=== PATIENT | female | born 1975 | race Caucasian/White ===

== ENCOUNTER 2021-08-29 17:06 | Observation (INO) ==
[2021-08-29] MEDS ORDERED: HYDROmorphone INJ 1 MG/ML SYRINGE IV STA (17:42)
[2021-08-29] MEDS ORDERED: ONDANSETRON INJ 2 MG/ML 2 ML VIAL IV STA (17:42)
[2021-08-29] MEDS ORDERED: dexAMETHasone**PF** 10 MG/ML VIAL IV ONE (17:42)
--- NOTE | 2021-08-29 17:51 | Emergency Department Note ---
Impression & Plan Protrusion of lumbar intervertebral disc, Acute left lumbar radiculopathy ED Provider Note CHIEF COMPLAINT: Left lower back pain HISTORY OF PRESENT ILLNESS: Diane Solano is a 45 year old female with history of sciatica, asthma, anxiety and insomnia who presents to the Emergency Department for evaluation of pain to her left lower back which has been progressing over the past week and then became significantly worse since yesterday as it is now radiating into her left groin and posterior left thigh, down into her calf. The patient does state that her left leg feels weak and she has not been able to stand up or walk secondary to her pain and weakness. Currently, she describes a severe burning pain and she rates her discomfort as a 10/10 which worsens with any position other than laying flat. She has taken Vicodin without relief of her symptoms. The patient denies having any numb ness/tingling or saddle paresthesias. She does state that she has had increased difficulty moving her bowels but has been urinating normally. She denies radiation of her pain into her right leg, mid-upper back, neck or down her arms. The patient denies sustaining recent falls or injuries prior to the time of onset. She does state that it seemed to come on initially when she got her menstrual cycle, which she has noted in the past as well. She has had sciatica in the past but states that she has never experienced symptoms to this severity before. She otherwise denies fevers/chills, chest pain, respiratory difficulties, abdominal pain, nausea or vomiting. No other acute complaints. REVIEW OF SYSTEMS: 10 systems were reviewed and were negative unless otherwise stated in HPI as above PHYSICAL EXAM: VITALS: Vitals are noted on the nurse's note and reviewed by myself. Vital signs stable. General: Laying flat in bed, tearful, appears uncomfortable HEENT: Normocephalic, atraumatic, PERRL, EOMI, mucous membranes moist, oropharynx clear Neck: No mid-line or paraspinal cervical tenderness, ROM intact without pain Back: Notes pain to the midline lumbar spine and left paraspinal musculature into the buttocks but not reproducible to palpation No obvious step-offs or deformities MSK/neuro: With attention to the LLE, Notes burning pains to the left groin and posterior thigh into the calf but not reproducible to palpation. Strength 5/5 through the hip and knee, 4/5 with plantar/dorsiflexion. Sensation and d/p pulse remains intact. No outward signs of trauma, moving all other extremities without apparent pain or difficulty, sensation intact and strength remains 5/5 throughout these extremities Neuro: Awake, alert and oriented x 3, interacting and answering questions appropriately Differential diagnosis includes musculoskeletal, disc herniation, fracture, cord compression, discitis, sciatica, cauda equina, as well as other pathologies. EMERGENCY DEPARTMENT COURSE: Physical exam and history were performed. Nursing triage notes, EMR, and medication list were personally reviewed. Patient appears to have pain to her left lower back which has been progressing over the past week and then became significantly worse since yesterday as it is now radiating into her left groin and posterior left thigh, down into her calf. The patient does state that her left leg feels weak and she has not been able to stand up or walk secondary to her pain and weakness. She has also noted difficulty having bowel movements, denies loss of continence of her bowels or bladder. Additional history as described above. See physical exam as noted above. The patient was offered pain medication. IV access was established and she was given Dilaudid 1 mg with an additional 0.5 mg x 2, dexamethasone 10 mg and Zofran 4 mg throughout her emergency department course. Given the patient's severe pain and neurological symptoms, MRI of the lumbar spine was obtained and reviewed by radiologist and myself as below. This did show focal disc protrusion in the left neural foramen at L5-S1 with resulting compression of the S1 nerve root, which is consistent with her symptoms. I did discuss results of the above findings with the patient at bedside as well as Dr. Johnson of orthopedic spine. He suggested admitting the patient with medicine for continued management until he is able to evaluate the patient tomorrow. He did suggest NPO at midnight in case of need for possible procedure. [facility] agreed to evaluate the patient as well. The patient verbalized her understanding and agreement with the treatment plan as above. The chart was completed utilizing [employer]. Grammatical errors, random word insertions, pronoun errors, and incomplete sentences are an occasional consequence of this system due to software limitations, ambient noise, and hardware issues. Any formal questions or concerns about the content, text, or information contained within the body of this dictation should be directly addressed to the provider for clarification. Past Med/Surg History Medical History Anxiety Asthma Insomnia Sciatica Surgical History No pertinent past surgical history Social History (Updated 08/29/21 @ 22:18 by Sravani Burns PA-C) Hx Substance Use: No Feels Safe at Home: Yes Results & Data (ED) Vital Signs Vital Signs - 24 hr 08/29/21 17:18 08/29/21 21:08 Temperature 36.7 C Temperature Source Temporal Artery Scan Pulse Rate 99 H Pulse Rate [Left Radial] 78 Pulse Rhythm [Left Radial] Regular Respiratory Rate 18 20 Respiratory Effort / Characteristics Non-Labored Non-Labored Respiratory Depth Normal Normal Blood Pressure 104/72 Blood Pressure [Left Arm] 126/77 Blood Pressure Mean 82 Blood Pressure Mean [Left Arm] 93 Blood Pressure Position Sitting Blood Pressure Position [Left Arm] Lying Pulse Oximetry 96 96 Oxygen Delivery Method Room Air Room Air Sepsis Recent Fever Within 48 Hours No Sepsis New/Unexplained Change in Mental Status No Sepsis Action Taken by Nursing No Action Required Laboratory Data Result diagrams: 08/29/21 21:28 08/29/21 21:28 Lab Results 08/29/21 08/29/21 08/29/21 Range/Units 21:28 21:28 21:28 WBC 9.74 (4.8-10.8) K/ul RBC 4.47 (3.93-5.22) M/uL Hgb 10.7 L (12.0-16.0) g/dl Hct 35.3 (34.1-44.9) % MCV 79.0 L (80.0-100.0) fL MCH 23.9 L (25.0-34.0) pg MCHC 30.3 L (32.0-36.0) g/dL RDW Std Deviation 50.6 H (36.4-46.3) fL RDW Coeff of Coby 17.6 H (11.5-14.5) % Plt Count 307 (130-400) K/uL MPV 10.1 (9.4-12.3) fL Immature Gran % (Auto) 0.4 % Neut % (Auto) 89.2 % Lymph % (Auto) 8.7 % Person % (Auto) 1.1 % Eos % (Auto) 0.4 % Baso % (Auto) 0.2 % Neut # (Auto) 8.68 H (1.4-6.5) K/uL Lymph # (Auto) 0.85 L (1.2-3.4) K/uL Person # (Auto) 0.11 L (0.24-0.82) K/uL Eos # (Auto) 0.04 (0-0.50) K/uL Baso # (Auto) 0.02 (0-0.2) K/uL Immature Gran # (Auto) 0.04 H (0.00-0.02) K/uL Sodium 135 L (136-145) mmol/L Potassium 3.9 (3.5-5.1) mmol/L Chloride 102 (98-107) mmol/L Carbon Dioxide 27 (21-32) mmol/L Anion Gap 6 (3-11) BUN 10 (6-23) mg/dl Creatinine 0.85 (0.6-1.2) mg/dl Est Cr Clr Drug Dosing Not Reportable Est GFR ( Amer) 94.6 ml/min Est GFR (Non-Af Amer) 81.6 ml/min BUN/Creatinine Ratio 11.8 (10-20) Glucose 162 H (70-99(Fasting)) mg/dl Calcium 8.4 L (8.5-10.1) mg/dl Total Bilirubin 0.2 (0.2-1.0) mg/dl AST 14 (13-39) U/L ALT 8 (7-52) U/L Alkaline Phosphatase 71 (34-104) U/L Total Protein 7.2 (6.0-8.3) gm/dl Albumin 4.0 (3.4-5.0) gm/dl Globulin 3.2 (2.5-4.0) gm/dl Albumin/Globulin Ratio 1.3 (0.9-2) SARS-CoV-2, RNA, NAAT NEGATIVE (NEGATIVE) Administered Medications Discontinued Medications Dexamethasone Sodium Phosphate (DexamethasonePf 10 Mg/Ml Vial) 10 mg IV NOW ONE Stop: 08/29/21 17:43 Last Admin: 08/29/21 18:16 Dose: 10 mg Documented By: Hydromorphone HCl (Hydromorphone Inj 1 Mg/Ml Syringe) 1 mg IV NOW STA Stop: 08/29/21 17:43 Last Admin: 08/29/21 18:15 Dose: 1 mg Documented By: Hydromorphone HCl (Hydromorphone Inj 0.5 Mg/0.5 Ml Syr) 0.5 mg IV NOW STA Stop: 08/29/21 19:07 Last Admin: 08/29/21 19:24 Dose: 0.5 mg Documented By: VIRGIL Hydromorphone HCl (Hydromorphone Inj 0.5 Mg/0.5 Ml Syr) 0.5 mg IV NOW STA Stop: 08/29/21 21:37 Last Admin: 08/29/21 21:42 Dose: 0.5 mg Documented By: DIONISIO Ondansetron HCl (Ondansetron Inj 2 Mg/Ml 2 Ml Vial) 4 mg IV NOW STA Stop: 08/29/21 17:43 Last Admin: 08/29/21 18:16 Dose: 4 mg Documented By: Imaging Data Radiologist's Impression: Lumbar Spine MRI 08/29/21 17:42 MR lumbar spine wo con CLINICAL HISTORY: Lumbar pain radiating into posterior LLE/L groin TECHNIQUE: Multiplanar sequences through the lumbar spine were obtained, without intravenous contrast. Comparison: None available at the time of this dictation. FINDINGS: The alignment is anatomical. L1-L2: No significant abnormality. L2-L3: No significant abnormality. L3-L4: No significant abnormality. L4-L5: No significant abnormality. L5-S1: There is a focal disc protrusion in the left neural foramen measuring approximately 5 mm at the base and 2.5 mm in extent, superimposed upon a broad- based disc bulge. There is resulting compression of the left S1 nerve root. The spinal ligaments are intact, without evidence of disruption or abnormal signal intensity. The spinal cord is normal in signal intensity and there is no evidence of cord contusion. There is no evidence of an extradural, intradural, extramedullary or intramedullary lesion. Visualized soft tissues are normal. IMPRESSION: Focal disc protrusion in the left neural foramen at L5-S1 with resulting compression of the S1 nerve root. ACT 112: Negative or not required by law. Electronically signed by: Mohan Sanchez M.D. 08/29/2021 8:04 PM Discharge Plan Visit Data Chief Complaint: Back Injury/Pain Stated Complaint: SEVERE BACK PAIN, GOING DOWN LEG TO CALF ED Provider: Arnold [facility] ED Midlevel Provider: Sravani Burns Discharge Problem: Protrusion of lumbar intervertebral disc, Acute left lumbar radiculopathy Patient Disposition: Admitted As Inpatient Forms Stand Alone Forms: [facility] Referrals Referrals: PCP,NO [Primary Care Provider] -
[2021-08-29] MEDS ORDERED: HYDROmorphone INJ 0.5 MG/0.5 ML SYR IV STA ×2 (19:06→21:36)
--- NOTE | 2021-08-29 20:06 | Magnetic Resonance Report ---
MR lumbar spine wo con CLINICAL HISTORY: Lumbar pain radiating into posterior LLE/L groin TECHNIQUE: Multiplanar sequences through the lumbar spine were obtained, without intravenous contrast . Comparison: None available at the time of this dictation. FINDINGS: The alignment is anatomical. L1-L2: No significant abnormality. L2-L3: No significant abnormality. L3-L4: No significant abnormality. L4-L5: No significant abnormality. L5-S1: There is a focal disc protrusion in the left neural foramen measuring approximately 5 mm at th e base and 2.5 mm in extent, superimposed upon a broad-based disc bulge. There is resulting compressi on of the left S1 nerve root. The spinal ligaments are intact, without evidence of disruption or abnormal signal intensity. The spi nal cord is normal in signal intensity and there is no evidence of cord contusion. There is no eviden ce of an extradural, intradural, extramedullary or intramedullary lesion. Visualized soft tissues are normal. IMPRESSION: Focal disc protrusion in the left neural foramen at L5-S1 with resulting compression of the S1 nerve root. ACT 112: Negative or not required by law. Electronically signed by: Mohan Sanchez M.D. 08/29/2021 8:04 PM
[2021-08-29 21:44] LABS: Basophils # (auto) 0.02 K/uL (0-0.2); Basophils % (auto) 0.2 %; Eosinophils # (auto) 0.04 K/uL (0-0.50); Eosinophils % (auto) 0.4 %; Hematocrit (blood only) 35.3 % (34.1-44.9); Hemoglobin 10.7 g/dl (12.0-16.0); Immature Granulocytes # (auto) 0.04 K/uL (0.00-0.02); Immature Granulocytes % (auto) 0.4 %; Lymphocytes # (auto) 0.85 K/uL (1.2-3.4); Lymphocytes % (auto) 8.7 %; Mean Corpuscular Hemoglobin 23.9 pg (25.0-34.0); Mean Corpuscular Hgb Conc 30.3 g/dL (32.0-36.0); Mean Platelet Volume 10.1 fL (9.4-12.3); Monocytes # (auto) 0.11 K/uL (0.24-0.82); Monocytes % (auto) 1.1 %; Neutrophils # (auto) 8.68 K/uL (1.4-6.5); Neutrophils % (auto) 89.2 %; Platelet Count 307 K/uL (130-400); RDW Coefficient of Variation 17.6 % (11.5-14.5); RDW Standard Deviation 50.6 fL (36.4-46.3); Red Blood Count 4.47 M/uL (3.93-5.22); White Blood Count 9.74 K/ul (4.8-10.8)
[2021-08-29 22:02] LABS: Alanine Aminotransferase 8 U/L (7-52); Albumin Globulin Ratio 1.3 (0.9-2); Alkaline Phosphatase 71 U/L (34-104); Anion Gap 6 (3-11); Aspartate Aminotransferase 14 U/L (13-39); BUN Creatinine Ratio 11.8 (10-20); Bilirubin,Total 0.2 mg/dl (0.2-1.0); Blood Urea Nitrogen 10 mg/dl (6-23); Calcium 8.4 mg/dl (8.5-10.1); Carbon Dioxide 27 mmol/L (21-32); Chloride 102 mmol/L (98-107); Est GFR (African American) 94.6 ml/min; Est GFR (Non-African American) 81.6 ml/min; Globulin 3.2 gm/dl (2.5-4.0); Glucose 162 mg/dl (70-99(Fasting)); Potassium 3.9 mmol/L (3.5-5.1); Sodium 135 mmol/L (136-145); Total Protein 7.2 gm/dl (6.0-8.3)
--- NOTE | 2021-08-29 23:36 | History & Physical Report ---
Date of Service August 29, 2021 Assessment & Plan (1) Acute left lumbar radiculopathy: Plan: Progressive left lower back pain x several months, with acute worsening of pain x1-2 days, as well as weakness, difficulty ambulating, and difficulty passing stools. MRI lumbar spine showing focal disc protrusion in the left neural foramen at L5-S1 with resulting compression of the S1 nerve root - correlates with symptoms. - no saddle paraesthesias or urinary retention, but acute-onset weakness and stooling difficulties is concerning - Orthopedic surgery consulted - appreciate recs - NPO at midnight for possible surgical intervention - received Decadron 10mg IV in ED - s/p Dilaudid total 2mg - will give Toradol 10mg IV x1 now - continue with PRN graduated pain regimen: Tylenol 1g IV Q6H; Dilaudid 0.5mg IV Q3H (2) Hyponatremia: Plan: Na 135, no baseline. Mild, asymptomatic. Suspect hypotonic hypovolemic hyponatremia due to decreased fluid intake. - LR @80cc/hr - trend BMP in AM (3) Anemia: Plan: Hgb 10.7, microcytic/hypochromic. Patient does report heavy menstrual cycles which is likely major contributor to this. MATTHEW may also be playing a role. - iron profile and ferritin ordered in AM - trend CBC in AM (4) Protrusion of lumbar intervertebral disc: Plan: Plan as above (5) Anxiety: Plan: continue home Duloxetine (6) Insomnia: Plan: continue home Trazodone Plan FEN/GI: NPO at midnight for possible surgical intervention; LR @80cc/hr DVT Prophylaxis: SCDs; no chemoppx due to possible surgical intervention Code Status: full code Disposition: med/surg History of Present Illness Chief Complaint: back pain Primary Care Provider: NO PCP Diane Solano is a 45yo female with PMHx significant for anxiety, insomnia and sciatica who presented to [facility] ED on 08/29 for progressive left lower back pain x several months, with interval progression ~1 day ago of severe burning radiating pain through left groin and posterior left thigh into calf, with associated left leg weakness that has made it difficult for her to stand up and walk. Pain is severe in every position besides when she lies completely supine. Took Vicodin at home without relief of pain. Does report that she has had more difficulty moving bowels over the last 1-2 days, but has been urinating normal. Denies numbness/tingling, saddle paresthesias. Denies right-sided symptoms. Denies recent injury/trauma. Patient notes that her chronic left-sided sciatic pain has been progressively worsening over the last 3 months but that it general gets worse before she when starts her menstrual cycle. Denies fever/chills, chest pain, palpitations, SOB, N/V, abdominal pain or rash. In the ED the patient was afebrile and hemodynamically stable on room air. Labs significant for Hgb 10.7 (microcytic/hypochromic). Na 135. Otherwise CBC/CMP unremarkable. COVID-19 negative. Lumbar spine MRI showed focal disc protrusion in the left neural foramen at L5-S1 with resulting compression of the S1 nerve root. Patient was given Decadron 10mg IV x1. Was also given total of Dilaudid 2mg IV and Zofran x1. Currently she reports moderate pain but is significantly improved. The ED provider spoke with Dr. Johnson who recommended admission with hospitalist service for pain control and will be NPO at midnight for evaluation by him tomorrow morning for consideration of surgical management of symptoms. Allergies Allergy/AdvReac Type Severity Reaction Status Date / Time No Known Allergies Allergy Unverified 08/29/21 23:23 Home Medications Medication Instructions Recorded Confirmed Type Musely Vetaran 1 applic topical HS PRN flare ups 08/29/21 08/29/21 History duloxetine 60 mg capsule,delayed 60 mg PO DAILY 08/29/21 08/29/21 History release (Cymbalta) progesterone micronized 100 mg 1 cap PO QPM 08/29/21 08/29/21 History capsule trazodone 150 mg tablet 150 mg PO HS 08/29/21 08/29/21 History Past Med/Surg History Medical History (Updated 08/30/21 @ 01:44 by Joe Oconnor MD) Anxiety Asthma Insomnia Sciatica Surgical History No pertinent past surgical history Social History (Updated 08/29/21 @ 22:18 by Sravani Burns PA-C) Smoking Status: Never smoker Second Hand Exposure: No; Do You Dip or Chew Tobacco: No; Tobacco Cessation Education Requested by Patient: No Hx Alcohol Use: Yes Alcohol type: beer Hx Substance Use: Yes Last Used Substance: Days (ago) Last Used Substance Other:: unsure what day smoked marijuana and took vicodin to help with pain. Preferred Language: Khmer Communication Ability: Effective Community Liaison Required: No Beliefs That Will Affect Care: None Current Living Situation: Significant Other Other Information That Helps Us Care for You: No Feels Safe at Home: Yes Safety Concerns: Feels Safe At This Time Assistive Devices: None Review of Systems Review of Systems: All systems reviewed & are unremarkable except as noted in HPI & below Physical Exam Physical Exam: General: A&Ox3. NAD. Cooperative. HEENT: Atraumatic, normocephalic. Pulm: CTAB A&P. -wheezes, -rales, -rhonchi. Symmetrical chest rise. No increase work of breathing. No respiratory distress. Cardiac: RRR, -mrg. Radial pulses intact and symmetrical. Abdominal: soft, non-tender, non-distended, BS x 4 Back: positive straight leg raise on the left - shooting pain from back down left leg to foot with hip flexion 30 degrees. Left leg: sensation intact, reflexes 2+, hip flexion and leg flexion/extension limited by pain but patient also notices weakness as well. Results & Data Results [facility] Vital Signs (Past 12 Hours) Vital Signs Temp Pulse Pulse Resp BP BP Pulse Ox 08/29/21 22:55 87 19 108/63 99 08/29/21 21:08 78 20 126/77 96 08/29/21 17:18 36.7 C 99 H 18 104/72 96 O2 Del Method 08/29/21 22:55 Room Air 08/29/21 21:08 Room Air 08/29/21 17:18 Room Air Laboratory Results Laboratory Results WBC 9.74 K/ul (4.8-10.8) 08/29/21 21:28 RBC 4.47 M/uL (3.93-5.22) 08/29/21 21:28 Hgb 10.7 g/dl (12.0-16.0) L 08/29/21 21:28 Hct 35.3 % (34.1-44.9) 08/29/21 21:28 MCV 79.0 fL (80.0-100.0) L 08/29/21: MCH 23.9 pg (25.0-34.0) L 08/29/21: MCHC 30.3 g/dL (32.0-36.0) L 08/29/21: RDW Std Deviation 50.6 fL (36.4-46.3) H 08/29/21: RDW Coeff of Coby 17.6 % (11.5-14.5) H 08/29/21: Plt Count 307 K/uL (130-400) 08/29/21: MPV 10.1 fL (9.4-12.3) 08/29/21: Immature Gran % (Auto) 0.4 % 08/29/21: Neut % (Auto) 89.2 % 08/29/21: Lymph % (Auto) 8.7 % 08/29/21: [place] % (Auto) 1.1 % 08/29/21: Eos % (Auto) 0.4 % 08/29/21: Baso % (Auto) 0.2 % 08/29/21: Neut # (Auto) 8.68 K/uL (1.4-6.5) H 08/29/21: Lymph # (Auto) 0.85 K/uL (1.2-3.4) L 08/29/21: [place] # (Auto) 0.11 K/uL (0.24-0.82) L 08/29/21: Eos # (Auto) 0.04 K/uL (0-0.50) 08/29/21: Baso # (Auto) 0.02 K/uL (0-0.2) 08/29/21: Immature Gran # (Auto) 0.04 K/uL (0.00-0.02) H 08/29/21: Sodium 135 mmol/L (136-145) L 08/29/21: Potassium 3.9 mmol/L (3.5-5.1) 08/29/21: Chloride 102 mmol/L (98-107) 08/29/21: Carbon Dioxide 27 mmol/L (21-32) 07/14/22 21:28 Anion Gap 6 (3-11) 08/29/21 21: BUN 10 mg/dl (6-23) 08/29/21 21: Creatinine 0.85 mg/dl (0.6-1.2) 08/29/21 21: Est Cr Clr Drug Dosing Not Reportable 08/29/21 21: Est GFR ( Amer) 94.6 ml/min 08/29/21 21: Est GFR (Non-Af Amer) 81.6 ml/min 08/29/21 21: BUN/Creatinine Ratio 11.8 (10-20) 08/29/21 21: Glucose 162 mg/dl (70-99(Fasting)) H 08/29/21: Calcium 8.4 mg/dl (8.5-10.1) L 08/29/21 21: Total Bilirubin 0.2 mg/dl (0.2-1.0) 08/29/21 21: AST 14 U/L (13-39) 08/29/21 21: ALT 8 U/L (7-52) 08/29/21 21: Alkaline Phosphatase 71 U/L (34-104) 08/29/21 21: Total Protein 7.2 gm/dl (6.0-8.3) 08/29/21 21: Albumin 4.0 gm/dl (3.4-5.0) 08/29/21 21: Globulin 3.2 gm/dl (2.5-4.0) 08/29/21 21: Albumin/Globulin Ratio 1.3 (0.9-2) 08/29/21 21:28 Urine Test Negative (Negative) 08/30/21 02:57 SARS-CoV-2, RNA, NAAT NEGATIVE (NEGATIVE) 08/29/21 21:28 Impressions Lumbar Spine MRI 08/29/21 17:42 MR lumbar spine wo con CLINICAL HISTORY: Lumbar pain radiating into posterior LLE/L groin TECHNIQUE: Multiplanar sequences through the lumbar spine were obtained, without intravenous contrast. Comparison: None available at the time of this dictation. FINDINGS: The alignment is anatomical. L1-L2: No significant abnormality. L2-L3: No significant abnormality. L3-L4: No significant abnormality. L4-L5: No significant abnormality. L5-S1: There is a focal disc protrusion in the left neural foramen measuring approximately 5 mm at the base and 2.5 mm in extent, superimposed upon a broad- based disc bulge. There is resulting compression of the left S1 nerve root. The spinal ligaments are intact, without evidence of disruption or abnormal signal intensity. The spinal cord is normal in signal intensity and there is no evidence of cord contusion. There is no evidence of an extradural, intradural, extramedullary or intramedullary lesion. Visualized soft tissues are normal. IMPRESSION: Focal disc protrusion in the left neural foramen at L5-S1 with resulting compression of the S1 nerve root. ACT 112: Negative or not required by law. Electronically signed by: Mohan Sanchez M.D. 08/29/2021 8:04 PM Code Status & VTE Plan VTE Prophylaxis Plan VTE Prophylaxis will be ordered: Yes Supervising Physician Co-Signing Physician Notes Patient seen and examined, chart reviewed, case discussed with Dr. Oconnor I agree with his assessment and plan as documented above. In brief, patient is a 45-year-old female with history of sciatica presenting with progressive left lower back pain with acute worsening over the last day. Patient describes severe burning pain down her left posterior thigh with leg weakness as well as some difficulty having a bowel movement. She denies trauma, falls, fever/chills. On exam patient is afebrile, hemodynamically stable, no acute distress. HEENTnormocephalic/atraumatic, moist mucous membranes, neck supple Heart+ S1, S2, regular, no murmur/rub/gallops Lungs- Clear to auscultation Abdomenpositive bowel sounds, soft, nontender, nondistended Left lower extremity with reflexes and sensation intact, pain limits mobility. Labs and images reviewed significant for focal disc protrusion in the left neuroforamen at L5-S1 with resulting compression of the S1 nerve root Assessment/Plan: 45-year-old female presenting with acute on chronic back pain with left-sided sciatica, weakness, difficulty with bowel movements. Found to have focal disc protrusion in the left neuroforamen at L5-S1 Patient given steroids in the ER We will continue pain control with Tylenol, Dilaudid as needed Orthopedic surgery consult appreciated Remainder as above Resident Activity Tracking Resident Involvement: Resident Care Provided Care Provided: [facility] Medicine
[2021-08-29] MEDS ORDERED: KETOROLAC TROMETHAMINE 15 MG/ML VIAL IV ONE (23:44)
[2021-08-29] MEDS ORDERED: POLYETHYLENE (MIRALAX) 17 GM PACK PO STA (23:44)
[2021-08-30] MEDS: LACTATED RINGER'S 1,000 ML IV SCH ×2 (00:09→12:42)
[2021-08-30] MEDS ORDERED: DULoxetine HCL 60 MG CAP PO STA (00:15)
[2021-08-30] MEDS ORDERED: traZODone HCL 50 MG TAB PO STA (00:15)
[2021-08-30] MEDS ORDERED: ACETAMINOPHEN 1000 MG/100 ML IV IV PRN (01:42)
[2021-08-30] MEDS ORDERED: Patient's HEIGHT &/or WEIGHT Needed SCH (02:00)
[2021-08-30] MEDS: HYDROmorphone INJ 0.5 MG/0.5 ML SYR IV PRN ×4 (02:19→16:53)
[2021-08-30] MEDS ORDERED: ACETAMINOPHEN 1,000 MG/100 ML VIAL IV PRN (03:45)
[2021-08-30 03:53] LABS: Pregnancy Test, Urine Negative (Negative)
--- NOTE | 2021-08-30 03:58 | Billing Data ---
Date of Service August 30, 2021 Coding Level of Care Code INT OBSERVATION CARE 50M LVL 2
[2021-08-30 07:30] LABS: Hematocrit (blood only) 36.5 % (34.1-44.9); Hemoglobin 11.2 g/dl (12.0-16.0); Immature Granulocytes # (auto) 0.06 K/uL (0.00-0.02); Immature Granulocytes % (auto) 0.5 %; Lymphocytes # (auto) 0.99 K/uL (1.2-3.4); Mean Corpuscular Hemoglobin 23.5 pg (25.0-34.0); Mean Corpuscular Hgb Conc 30.7 g/dL (32.0-36.0); Mean Corpuscular Volume 76.5 fL (80.0-100.0); Mean Platelet Volume 10.1 fL (9.4-12.3); Monocytes # (auto) 0.14 K/uL (0.24-0.82); Monocytes % (auto) 1.3 %; Neutrophils # (auto) 9.76 K/uL (1.4-6.5); Neutrophils % (auto) 89.2 %; Platelet Count 318 K/uL (130-400); RDW Coefficient of Variation 17.3 % (11.5-14.5); RDW Standard Deviation 48.2 fL (36.4-46.3); Red Blood Count 4.77 M/uL (3.93-5.22); White Blood Count 10.95 K/ul (4.8-10.8)
[2021-08-30] MEDS ORDERED: Nursing to Pharmacy Communication SCH (07:45)
[2021-08-30 07:58] LABS: BUN Creatinine Ratio 14.9 (10-20); Calcium 8.5 mg/dl (8.5-10.1); Est GFR (African American) 111.8 ml/min; Est GFR (Non-African American) 96.5 ml/min; Magnesium 1.9 mg/dl (1.7-2.4); Potassium 4.6 mmol/L (3.5-5.1)
[2021-08-30] MEDS: ONDANSETRON INJ 2 MG/ML 2 ML VIAL IV PRN ×2 (08:01→16:53)
--- NOTE | 2021-08-30 08:07 | Hospitalist Progress Note ---
Date of Service August 30, 2021 Assessment & Plan (1) Acute left lumbar radiculopathy: (2) Hyponatremia: (3) Anemia: (4) Protrusion of lumbar intervertebral disc: (5) Anxiety: (6) Insomnia: Plan Ms. Solano is a 45 y/o female with a PMHx of insomnia and anxiety here for evaluation of left lower back pain for several months duration that worsened significantly over the last 1-2 days with associated weakness, difficulty ambulating, and difficulty stooling who has now developed difficulty urinating. #Lumbar Radiculopathy The patient has been experiencing progress left lower back pain for several months duration that has acutely worsened over the last 1-2 days. She also repo rts weakness, difficulty ambulating, and difficulty passing stools. MRI lumbar spine showed focal disc protrusion in the left neural foramen at L5-S1 with compression of the S1 nerve root. Patient denies any saddle paraesthesias, bowel or bladder incontinence. Surgery is recommending injections with pain management prior to any surgical intervention. Pain management cannot see the patient until at the very earliest Thursday. The patient and her are from out of town and have flights planned for Thursday. Will have a conversation with them about next steps. [] Added on Percocet 5 mg Q6 with Tylenol 325 mg Q8. PRN Dilaudid 0.5mg IV Q3H #Hyponatremia Na 135 on admission, no baseline. Mild, asymptomatic. Suspect hypotonic hypovolemic hyponatremia due to decreased fluid intake. [] on LR @80cc/hr [] AM BMP #Anemia Hgb 10.7 on admission. 11.2 today, microcytic/hypochromic. Patient does report heavy menstrual cycles which is likely major contributor to this. Iron deficiency anemia may also be playing a role. [] iron profile and ferritin ordered in AM - Iron-38, TIBC-373, Unsaturated-335, Tranferrin% sat-10L, Unsaturated Ferritin 4.1L [] AM CBC #Anxiety [] continue home Duloxetine #Insomnia [] continue home Trazodone FEN/GI: NPO at midnight for possible surgical intervention; LR @80cc/hr DVT Prophylaxis: SCDs; no chemoppx due to possible surgical intervention Code Status: full code Disposition: med/surg Admission and Anticipated Discharge Date Admission Date: August 29, 2021 Supervising Physician Co-Signing Physician Notes Attending attestation Pt seen and examined in concert with Dr. Benavidez. In agreement with the documented findings as noted in the resident documentation with any exceptions or additions as noted here. Ongoing lower back pain which is an acute exacerbation of chronic pain which has not been this severe previously. Tends to exacerbate with overuse during menses, both of which have occurred at this time. Radiating pain ongoing as noted, though pain controlled on present regimen. Some acute on chronic constipation, requesting bowel regimen assistance. On examination, S1/S2 nl RRR no MCG. CTAB. Abd NT/ND BS+ve. Reflexes and sensation intact bilateral LE. Acute on chronic lower back pain w/ LLE sciatic pain - ortho spine consult - no acute surgical intervention, rec'd pain mgmt on Thursday. Pain control as noted with adjustment of regimen for preference of PO agent. Constipation, acute on chronic - monitor w/ worsening more concerning to be related to LBP - add miralax, consider escalation based on response Else see resident documentation as noted. Subjective The patient notes continued left sided back pain that radiates down the back of the left leg. She presented with difficulty stooling and has now developed d ifficulty with urination. The patient notes continued weakness. Otherwise she has no complaints. Review of Systems Review of Systems: See Subjective/HPI Physical Exam Physical Exam: General: A&Ox3. NAD. Cooperative. HEENT: Atraumatic, normocephalic. Pulm: CTAB A&P. -wheezes, -rales, -rhonchi. Symmetrical chest rise. No increase work of breathing. No respiratory distress. Cardiac: RRR, -mrg. Radial pulses intact and symmetrical. Abdominal: soft, non-tender, non-distended MSK exam deffered. Results & Data Results & Data ([facility]) Vital Signs (Past 12 Hours) Vital Signs Temp Pulse Pulse Resp BP Pulse Ox O2 Del Method 08/30/21 07:34 36.9 C 66 16 108/71 99 Room Air 08/30/21 01:00 36.9 C 60 16 106/67 99 Room Air 08/29/21 22:55 87 19 108/63 99 Room Air 08/29/21 21:08 78 20 126/77 96 Room Air Laboratory Results 08/30/21 08/30/21 08/30/21 Range/Units 07:10 07:10 02:57 WBC 10.95 H (4.8-10.8) K/ul RBC 4.77 (3.93-5.22) M/uL Hgb 11.2 L (12.0-16.0) g/dl Hct 36.5 (34.1-44.9) % MCV 76.5 L (80.0-100.0) fL MCH 23.5 L (25.0-34.0) pg MCHC 30.7 L (32.0-36.0) g/dL RDW Std Deviation 48.2 H (36.4-46.3) fL RDW Coeff of Coby 17.3 H (11.5-14.5) % Plt Count 318 (130-400) K/uL MPV 10.1 (9.4-12.3) fL Immature Gran % (Auto) 0.5 % Neut % (Auto) 89.2 % Lymph % (Auto) 9.0 % [place] % (Auto) 1.3 % Eos % (Auto) 0.0 % Baso % (Auto) 0.0 % Neut # (Auto) 9.76 H (1.4-6.5) K/uL Lymph # (Auto) 0.99 L (1.2-3.4) K/uL [place] # (Auto) 0.14 L (0.24-0.82) K/uL Eos # (Auto) 0.00 (0-0.50) K/uL Baso # (Auto) 0.00 (0-0.2) K/uL Immature Gran # (Auto) 0.06 H (0.00-0.02) K/uL Sodium 135 L (136-145) mmol/L Potassium 4.6 (3.5-5.1) mmol/L Chloride 103 (98-107) mmol/L Carbon Dioxide 26 (21-32) mmol/L Anion Gap 6 (3-11) BUN 11 (6-23) mg/dl Creatinine 0.74 (0.6-1.2) mg/dl Est Cr Clr Drug Dosing 88.0 Est GFR ( Amer) 111.8 ml/min Est GFR (Non-Af Amer) 96.5 ml/min BUN/Creatinine Ratio 14.9 (10-20) Glucose 137 H (70-99(Fasting)) mg/dl Calcium 8.5 (8.5-10.1) mg/dl Magnesium 1.9 (1.7-2.4) mg/dl Iron 38 (35-150) mcg/dl TIBC 373 (250-450) mcg/dl Unsaturated IBC 335 (155-355) mcg/dl Transferrin % Sat 10 L (15-50) % Ferritin 4.1 L (8-388) ng/ml Total Bilirubin (0.2-1.0) mg/dl AST (13-39) U/L ALT (7-52) U/L Alkaline Phosphatase (34-104) U/L Total Protein (6.0-8.3) gm/dl Albumin (3.4-5.0) gm/dl Globulin (2.5-4.0) gm/dl Albumin/Globulin Ratio (0.9-2) Urine Test Negative (Negative) SARS-CoV-2, RNA, NAAT (NEGATIVE) 08/29/21 08/29/21 08/29/21 Range/Units 21:28 21:28 21:28 WBC 9.74 (4.8-10.8) K/ul RBC 4.47 (3.93-5.22) M/uL Hgb 10.7 L (12.0-16.0) g/dl Hct 35.3 (34.1-44.9) % MCV 79.0 L (80.0-100.0) fL MCH 23.9 L (25.0-34.0) pg MCHC 30.3 L (32.0-36.0) g/dL RDW Std Deviation 50.6 H (36.4-46.3) fL RDW Coeff of Coby 17.6 H (11.5-14.5) % Plt Count 307 (130-400) K/uL MPV 10.1 (9.4-12.3) fL Immature Gran % (Auto) 0.4 % Neut % (Auto) 89.2 % Lymph % (Auto) 8.7 % [place] % (Auto) 1.1 % Eos % (Auto) 0.4 % Baso % (Auto) 0.2 % Neut # (Auto) 8.68 H (1.4-6.5) K/uL Lymph # (Auto) 0.85 L (1.2-3.4) K/uL [place] # (Auto) 0.11 L (0.24-0.82) K/uL Eos # (Auto) 0.04 (0-0.50) K/uL Baso # (Auto) 0.02 (0-0.2) K/uL Immature Gran # (Auto) 0.04 H (0.00-0.02) K/uL Sodium 135 L (136-145) mmol/L Potassium 3.9 (3.5-5.1) mmol/L Chloride 102 (98-107) mmol/L Carbon Dioxide 27 (21-32) mmol/L Anion Gap 6 (3-11) BUN 10 (6-23) mg/dl Creatinine 0.85 (0.6-1.2) mg/dl Est Cr Clr Drug Dosing Not Reportable Est GFR ( Amer) 94.6 ml/min Est GFR (Non-Af Amer) 81.6 ml/min BUN/Creatinine Ratio 11.8 (10-20) Glucose 162 H (70-99(Fasting)) mg/dl Calcium 8.4 L (8.5-10.1) mg/dl Magnesium (1.7-2.4) mg/dl Iron (35-150) mcg/dl TIBC (250-450) mcg/dl Unsaturated IBC (155-355) mcg/dl Transferrin % Sat (15-50) % Ferritin (8-388) ng/ml Total Bilirubin 0.2 (0.2-1.0) mg/dl AST 14 (13-39) U/L ALT 8 (7-52) U/L Alkaline Phosphatase 71 (34-104) U/L Total Protein 7.2 (6.0-8.3) gm/dl Albumin 4.0 (3.4-5.0) gm/dl Globulin 3.2 (2.5-4.0) gm/dl Albumin/Globulin Ratio 1.3 (0.9-2) Urine Test (Negative) SARS-CoV-2, RNA, NAAT NEGATIVE (NEGATIVE) Diagnostic Findings MRI Lumbar Spine 08/29: L1-L2: No significant abnormality. L2-L3: No significant abnormality. L3-L4: No significant abnormality. L4-L5: No significant abnormality. L5-S1: There is a focal disc protrusion in the left neural foramen measuring approximately 5 mm at the base and 2.5 mm in extent, superimposed upon a broad- based disc bulge. There is resulting compression of the left S1 nerve root. The spinal ligaments are intact, without evidence of disruption or abnormal signal intensity. The spinal cord is normal in signal intensity and there is no evidence of cord contusion. There is no evidence of an extradural, intradural, extramedullary or intramedullary lesion. Visualized soft tissues are normal. IMPRESSION: Focal disc protrusion in the left neural foramen at L5-S1 with resulting compression of the S1 nerve root. Resident Activity Tracking Resident Involvement: Resident Care Provided Care Provided: [facility]
[2021-08-30 08:11] LABS: Ferritin 4.1 ng/ml (8-388)
[2021-08-30] MEDS ORDERED: DULoxetine HCL 60 MG CAP PO SCH ×2 (09:00→21:00)
--- NOTE | 2021-08-30 14:24 | Orthopedic Consultation ---
Date of Consultation August 30, 2021 Assessment & Plan (1) Acute left lumbar radiculopathy: Assessment herniated was pulposis L5-S1 on the left. Plan at this time explained the patient and her that she has evidence of discrimination that is acute. Its compressing the traversing S1 nerve root on the left and subsequently explains her symptom complex and pattern of pain. We discussed that she is only had the symptoms for about a day and it was worth trying a course of medical management including epidural injections before considering surgical intervention. Patient and her understand agree. We will try for epidural injections if she fails to improve at that point may have to consider surgical invention. History of Present Illness Reason for Consultation: Back and left leg pain Attending Physician: Kris Wells MD History of Present Illness This very pleasant 45-year-old female presents the emergency room yesterday with worsening left leg radiculopathy. She did have a history of significant bouts of back pain for the past several months with an acute onset of left leg pain beginning yesterday. She denies any specific trauma fall or event. Right lower extremity is asymptomatic. She denies any perineal numbness or tingling or any loss of bowel bladder control. Allergies Allergy/AdvReac Type Severity Reaction Status Date / Time No Known Allergies Allergy Unverified 08/29/21 23:23 Home Medications Medication Instructions Recorded Confirmed Type Musely Vetaran 1 applic topical HS PRN flare ups 08/29/21 08/29/21 History duloxetine 60 mg capsule,delayed 60 mg PO DAILY 08/29/21 08/29/21 History release (Cymbalta) progesterone micronized 100 mg 1 cap PO QPM 08/29/21 08/29/21 History capsule trazodone 150 mg tablet 150 mg PO HS 08/29/21 08/29/21 History Patient History Medical History (Updated 08/30/21 @ 01:44 by Joe Oconnor MD) Anxiety Asthma Insomnia Sciatica Surgical History No pertinent past surgical history Social History (Updated 08/29/21 @ 22:18 by Sravani Burns PA-C) Smoking Status: Never smoker Second Hand Exposure: No; Do You Dip or Chew Tobacco: No; Tobacco Cessation Education Requested by Patient: No Hx Alcohol Use: Yes Alcohol type: beer Hx Substance Use: Yes Last Used Substance: Days (ago) Last Used Substance Other:: unsure what day smoked marijuana and took vicodin to help with pain. Preferred Language: Ukrainian Communication Ability: Effective Information Services Consultant Required: No Beliefs That Will Affect Care: None marital status: Life Partner Current Living Situation: Significant Other Other Information That Helps Us Care for You: No Feels Safe at Home: Yes Safety Concerns: Feels Safe At This Time Assistive Devices: None Physical Exam Physical Exam: On exam she is most comfortable supine. She has reasonable plantar flexion dorsiflexion bilaterally. There is tension signs straight leg raising on the left. Sensory appears to be intact. Results & Data ([facility]) Vital Signs (Past 12 Hours) Vital Signs Temp Pulse Resp BP Pulse Ox O2 Del Method 08/30/21 07:34 36.9 C 66 16 108/71 99 Room Air
[2021-08-30] MEDS ORDERED: DOCUSATE SODIUM/SENNA 50/8.6MG TAB PO SCH (17:00)
[2021-08-30] MEDS ORDERED: POLYETHYLENE (MIRALAX) 17 GM PACK PO SCH (17:00)
[2021-08-30] MEDS ORDERED: oxyCODONE/ACETAMINOPHEN 5mg/325mg TAB PO PRN (17:00)
[2021-08-30] MEDS ORDERED: ACETAMINOPHEN 325 MG TAB PO PRN (17:02)
--- NOTE | 2021-08-30 19:42 | Discharge Summary ---
Date of Service August 30, 2021 Admission HPI Per Admitting Provider Diane Solano is a 45yo female with PMHx significant for anxiety, insomnia and sciatica who presented to [facility] ED on 08/29 for progressive left lower back pain x several months, with interval progression ~1 day ago of severe burning radiating pain through left groin and posterior left thigh into calf, with associated left leg weakness that has made it difficult for her to stand up and walk. Pain is severe in every position besides when she lies completely supine. Took Vicodin at home without relief of pain. Does report that she has had more difficulty moving bowels over the last 1-2 days, but has been urinating normal. Denies numbness/tingling, saddle paresthesias. Denies right-sided symptoms. Denies recent injury/trauma. Patient notes that her chronic left-sided sciatic pain has been progressively worsening over the last 3 months but that it general gets worse before she when starts her menstrual cycle. Denies fever/chills, chest pain, palpitations, SOB, N/V, abdominal pain or rash. In the ED the patient was afebrile and hemodynamically stable on room air. Labs significant for Hgb 10.7 (microcytic/hypochromic). Na 135. Otherwise CBC/CMP unremarkable. COVID-19 negative. Lumbar spine MRI showed focal disc protrusion in the left neural foramen at L5-S1 with resulting compression of the S1 nerve root. Patient was given Decadron 10mg IV x1. Was also given total of Dilaudid 2mg IV and Zofran x1. Currently she reports moderate pain but is significantly improved. The ED provider spoke with Dr. Johnson who recommended admission with hospitalist service for pain control and will be NPO at midnight for evaluation by him tomorrow morning for consideration of surgical management of symptoms. Admission Exam Per Admitting Provider General: A&Ox3. NAD. Cooperative. HEENT: Atraumatic, normocephalic. Pulm: CTAB A&P. -wheezes, -rales, -rhonchi. Symmetrical chest rise. No increase work of breathing. No respiratory distress. Cardiac: RRR, -mrg. Radial pulses intact and symmetrical. Abdominal: soft, non-tender, non-distended, BS x 4 Back: positive straight leg raise on the left - shooting pain from back down left leg to foot with hip flexion 30 degrees. Left leg: sensation intact, reflexes 2+, hip flexion and leg flexion/extension limited by pain but patient also notices weakness as well. Principal Diagnosis Lumbar Radiculopathy Discharge Exam General: A&Ox3. NAD. Cooperative. HEENT: Atraumatic, normocephalic. Pulm: CTAB A&P. -wheezes, -rales, -rhonchi. Symmetrical chest rise. No increase work of breathing. No respiratory distress. Cardiac: RRR, -mrg. Radial pulses intact and symmetrical. Abdominal: soft, non-tender, non-distended, BS x 4 Back: positive straight leg raise on the left - shooting pain from back down left leg to foot with hip flexion 30 degrees. Left leg: sensation intact, reflexes 2+, hip flexion and leg flexion/extension limited by pain but patient also notices weakness as well. Discharge Data Allergies Allergy/AdvReac Type Severity Reaction Status Date / Time No Known Allergies Allergy Unverified 08/29/21 23:23 Consultations 08/30/21 01:42 Consult Orthopedic Surgery Routine 08/30/21 12:13 Consult Pain Management Routine Ordered Studies 08/29/21 17:42 MRI Lumbar Spine [MR lumbar spine wo con] Stat Hospital Course (1) Acute left lumbar radiculopathy: (2) Hyponatremia: (3) Anemia: (4) Protrusion of lumbar intervertebral disc: (5) Anxiety: (6) Insomnia: Plan Ms. Solano is a 45 y/o female with a PMHx of insomnia and anxiety here for ev aluation of left lower back pain for several months duration that worsened significantly over the last 1-2 days with associated weakness. #Lumbar Radiculopathy The patient has been experiencing progress left lower back pain for several months duration that has acutely worsened over the last 1-2 days. She also reports weakness, difficulty ambulating, and difficulty passing stools. MRI lumbar spine showed focal disc protrusion in the left neural foramen at L5-S1 with compression of the S1 nerve root. Patient denies any saddle paraesthesias, bowel or bladder incontinence. With shared decision making between surgery and the patient they decided to plan for injections with pain management prior to any surgical intervention. Pain management cannot see the patient until at the very earliest Thursday. The patient and her are from out of town and have flights planned for Thursday. Will have a conversation with them about next steps. After a discussion with the patient regarding her status as "observation" the patient expressed concern over the cost of staying in the hospital. After having a conversation weighing the pros and cons of staying the patient decided ultimately to leave. We had a discussion regarding the risks of leaving the hospital - including but not limited to worsening of symptoms, complications, and readmission. We came up with a plan together. Patient will contact pain management Thursday and attempt to get an appointment prior to returning to [place]. I will do so as well. Patient was given a four day supply of Percocet 5 mg and directed to attempt to control pain with OTC medications. If unable to get in to see Pain Management early in the week she will follow up with me in clinic Thursday for reevaluation. #Hyponatremia Na 135 on admission, no baseline. Mild, asymptomatic. Suspect hypotonic hypovolemic hyponatremia due to decreased fluid intake. Follow up BMP outpatient. #Anemia Hgb 10.7 on admission. 11.2 today, microcytic/hypochromic. Patient does report heavy menstrual cycles which is likely major contributor to this. Iron deficiency anemia may also be playing a role ordered iron studies. Iron-38, TIBC-373, Unsaturated-335, Tranferrin% sat-10L, Unsaturated Ferritin 4.1L. Follow up outpatient. #Anxiety Continued home Duloxetine #Insomnia Continued home Trazodone FEN/GI: NPO at midnight for possible surgical intervention; LR @80cc/hr DVT Prophylaxis: SCDs; no chemoppx due to possible surgical intervention Code Status: full code Disposition: home Total Time Total Time Spent Total Time Spent (In Minutes): See attending attestation. Discharge Plan Discharge Items Patient Disposition: Home - Self-Care Reason For Visit: SEVERE BACK PAIN Discharge Diagnosis: Lumbar Radiculopathy Activity: Per Instructions section Non-emergency contact: Primary Care Provider Call non-emergency contact if: you have any medication questions, your pain is not controlled and your pain is worsening Follow-up/Referrals: PCP,NO [Primary Care Provider] - Diet: Regular Addtl Attending Provider Instructions: You were seen in the hospital for severe left sided back pain that radiates down the left leg with associated weakness. You were found to have lumbar radiculopathy. Ortho Surg was consulted and they recommended injections with pain management. Pain management was unable to see her today and likely would not be able to see her until Thursday. You were treated for your pain. You were given a prescription for Percocet which contains 325 mg of Tylenol. You can take up to 3-4 grams of Tylenol a day. Try to manage your pain with over the counter medications if possible. To avoid constipation I'd recommend getting Miralax and Senna over the counter If you develop urinary or fecal incontinence, numbness around the genital region, or your pain is uncontrolled by Percocet return to the ED. Pending Studies at Discharge: No Stand-Alone Forms: My [facility] [email or web address], Smoking Cessation Medications and DC Order Prescriptions: New oxycodone 5 mg tablet 5 mg PO Q6H MDD 20 mg PRN (Reason: pain) Qty: 20 0RF Continued trazodone 150 mg Tablet 150 mg PO HS progesterone micronized 100 mg capsule 1 cap PO QPM duloxetine [Cymbalta] 60 mg Capsule,Delayed Release(Dr/Ec) 60 mg PO DAILY Musely Vetaran 1 applic topical HS PRN (Reason: flare ups) Rx Instructions: APPLY PEA SIZE TO ENTIRE FACE. Discharge Orders: Discharge Order (Routine); Ordered 08/30/21 Ordered By: Alayna Tanner/Other Patient Handouts: Relieving Back Pain, Low Back Leg Pain Causes Admission Data Admit Date/Time: 08/29/21 22:54 Attending Provider: Kris Wells Admit Provider: Teresa Butler Primary Care Provider: PCP,NO Other Providers: Gonsalo Johnson ; Diane Herr Other Interventions: Discharge Summary Assessment (RN) Last Done: 08/30/21 20:27 Supervising Physician Co-Signing Physician Notes Attending attestation Pt seen and examined in concert with Dr. Benavidez. In agreement with the document ed findings as noted in the resident documentation with any exceptions or additions as noted here. Ongoing lower back pain which is an acute exacerbation of chronic pain which has not been this severe previously. Tends to exacerbate with overuse during menses, both of which have occurred at this time. Radiating pain ongoing as noted, though pain controlled on present regimen. Some acute on chronic constipation On examination, S1/S2 nl RRR no MCG. CTAB. Abd NT/ND BS+ve. Reflexes and sensation intact bilateral LE. Acute on chronic lower back pain w/ LLE sciatic pain - ortho spine consult - no acute surgical intervention, rec'd pain mgmt on Thursday. Pain control as noted with adjustment of regimen for preference of PO agent as patient does not wish to remain admitted to await pain management evaluation on thursday and no red flags Constipation, acute on chronic - monitor w/ worsening more concerning to be related to LBP - add miralax, consider escalation based on response with close outpatient follow up Else see resident documentation as noted. Total attending physician time spent with this patient's care on the day of discharge: 40 minutes Resident Activity Tracking Resident Involvement: Resident Care Provided Care Provided: Adult [facility] Medicine
[2021-08-30] MEDS ORDERED: PERCOCET 5/325MG HOMEPACK PO ONE (20:00)
[2021-08-30] MEDS ORDERED: traZODone HCL 50 MG TAB PO SCH (21:00)
--- NOTE | 2021-09-02 08:26 | Pain Management Consultation ---
Date of Consultation September 02, 2021 Assessment & Plan (1) Protrusion of lumbar intervertebral disc: Plan pt was d/c'd prior to being seen History of Present Illness Attending Physician: Kris Wells MD Allergies Allergy/AdvReac Type Severity Reaction Status Date / Time No Known Allergies Allergy Unverified 08/29/21 23:23 Home Medications Medication Instructions Recorded Confirmed Type Musely Vetaran 1 applic topical HS PRN flare ups 08/29/21 08/29/21 History duloxetine 60 mg capsule,delayed 60 mg PO DAILY 08/29/21 08/29/21 History release (Cymbalta) progesterone micronized 100 mg 1 cap PO QPM 08/29/21 08/29/21 History capsule trazodone 150 mg tablet 150 mg PO HS 08/29/21 08/29/21 History oxycodone 5 mg tablet 5 mg PO Q6H PRN pain #20 tabs 08/30/21 Rx Patient History Medical History (Updated 08/30/21 @ 01:44 by Joe Oconnor MD) Anxiety Asthma Insomnia Sciatica Surgical History No pertinent past surgical history Social History (Updated 08/29/21 @ 22:18 by Sravani Burns PA-C) Smoking Status: Never smoker Second Hand Exposure: No; Hx Alcohol Use: Yes Alcohol type: beer Hx Substance Use: Yes Last Used Substance: Days (ago) Last Used Substance Other:: unsure what day smoked marijuana and took vicodin to help with pain. Preferred Language: Mosotho Communication Ability: Effective Operations Research Scientist Required: No Beliefs That Will Affect Care: None marital status: Life Partner Current Living Situation: Significant Other Feels Safe at Home: Yes Assistive Devices: None
== END 2021-08-30 20:50 | disposition home or self-care (01) ==
LOC: ED 17:06 → 3N 17:06 → SUATTDRO 22:54 → 3N 08-30 00:53
DX: F41.9 Anxiety disorder, unspecified; M54.16 Radiculopathy, lumbar region; G47.00 Insomnia, unspecified; D64.9 Anemia, unspecified; M51.26 Other intervertebral disc displacement, lumbar region; E87.1 Hypo-osmolality and hyponatremia